=== PATIENT | female | born 1950 | race Caucasian/White ===

== ENCOUNTER 2019-07-27 19:36 | Emergency (ER) | payer OTHER ==
[2019-07-27 20:01] VITALS: TEMP 98.7; BMI 34.0
--- NOTE | 2019-07-27 21:32 | PDOC ---
History of Present Illness - General Chief Complaint: Chest Pain Stated Complaint: CHEST PAIN Time Seen by Provider: 07/27/19 21:32 History Source: Patient Exam Limitations: No Limitations - History of Present Illness Initial Comments: 69-year-old female with past medical history of hypertension, hyperlipidemia, diabetes, atrial fibrillation on Eliquis presented to the emergency department for chest pain for four days. Patient reported her pain is substernal, intermittent, aggravated by coughing or deep inspiration, no alleviating factors. She reported she has had a productive white cough for the last two months, has been seen by ENT and has had an EGD done, which was equivocal. They are still trying to figure out what the cause of the cough is. She reported that she also has intermittent right lateral back pain, her family member at bedside reported and they gave her a lidocaine patch the other day and that improved her symptoms. She reported that last night she took 200 mg of Advil, which did not improve her symptoms. She reported she will sometimes feel short of breath, more so when she lays down flat. She denies lower extremity swelling , fever, bodyaches, chills, headache, nausea, vomiting, diarrhea, abdominal pain. She denied history of recent travel, surgery in the last four weeks, hormone use, history of DVT or PE, hemoptysis, recent fall or fracture. She reported she has 0/10 chest pain now, but she is traveling [place] to [place], and this is why she felt she needs to be evaluated tonight. ROS General: denied fever, chills, generalized weakness. HEENT: denied sore throat, rhinorrhea, ear pain. Cardiovascular: admitted to chest pain. denied palpitations, syncope, diaphoresis. Respiratory: admitted to shortness of breath, cough, sputum production. denied hemoptysis. Gastrointestinal: denied abdominal pain, nausea, vomiting, diarrhea, constipation, blood in stool. Genitourinary: denied dysuria, increased urinary frequency, hematuria, urinary incontinence, flank pain. Back: admitted to back pain. Musculoskeletal: denied joint pain, muscle pain, joint swelling. Neurological: denied headache, dizziness, numbness, tingling, weakness. Integumentary: denied rash, laceration, abrasion. Hematologic/Lymphatic: denied bruising or bleeding. PE Constitutional: Well-nourished, Well-developed, appearing stated age. laughing with her family. HEENT: head is normocephalic, atraumatic. EOMI. PERRLA. Neck: supple. Full ROM. Cardiovascular: irregularly irregular heart rhythm. no murmurs. no pericardial friction rub. Respiratory: left base crackles. right lung clear to auscultation. no stridor. no labored breathing. speaking full sentences. Gastrointestinal: soft, nontender. normal bowel sounds. no rebound, guarding, masses. Extremities: peripheral pulses intact. no lower extremity pitting edema bilaterally. no calf tenderness bilaterally. Neurological: CN 2-12 grossly intact. moves all four extremities. Psych: awake, alert, oriented x3. follows commands. answers questions appropriately. Past History - Past Medical History Allergies/Adverse Reactions: Allergies Allergy/AdvReac Type Severity Reaction Status Date / Time iodine Allergy Severe Rash Verified 07/27/19 20:02 Home Medications: Ambulatory Orders Lidocaine 5% Patch [Lidoderm Patch -] 1 patch TP DAILY #7 patch 07/27/19 - Psycho Social/Smoking Cessation Hx Smoking History: Never smoked Have you smoked in the past 12 months: No Information on smoking cessation initiated: No Hx Alcohol Use: No Drug/Substance Use Hx: No *Physical Exam - Vital Signs Last Vital Signs Temp Pulse Resp BP Pulse Ox 98.7 F 80 18 157/91 97 07/27/19 19:57 07/27/19 19:57 07/27/19 19:57 07/27/19 19:57 07/27/19 19:57 ED Treatment Course - LABORATORY CBC & Chemistry Diagram: 07/27/19 20:15 07/27/19 20:15 Medical Decision Making - Medical Decision Making 69 year old female with above PMH presented to ED for chest pain x4 days associated with productive white cough x2 months. Initial Vital Signs Temp Pulse Resp BP Pulse Ox 98.7 F 80 18 157/91 97 07/27/19 19:57 07/27/19 19:57 07/27/19 19:57 07/27/19 19:57 07/27/19 19:57 Afebrile. No tachycardia. No tachypnea. Hypertensive. No hypoxia on room air. Labs ordered: CBC, CMP, BNP, Troponin Imaging ordered: CXR, right rib series Medications ordered: Tylenol 975 mg PO once EKG performed at 1950: rate 72, irregularly irregular rhythm, normal axis, QTc 409, no acute ST changes. CXR my and Dr. Hernandez's view: no infiltrate. sharp costophrenic angles. borderline cardiomegaly. -Pending official report Rib series my and Dr. Hernandez's view: no acute fracture/dislocation. -Pending official report Concern for ACS low, no current chest pain, history low suspicion, chronic cough may be giving pt her chest pain. No EKG changes, will get troponin. 07/27/19 23:50 Laboratory Last Values WBC 5.2 K/mm3 (4.0-10.0) 07/27/19 20:15 RBC 4.23 M/mm3 (3.60-5.2) 07/27/19 20:15 Hgb 12.6 GM/dL (10.7-15.3) 07/27/19 20:15 Hct 38.1 % (32.4-45.2) 07/27/19 20:15 MCV 90.2 fl (80-96) 07/27/19 20:15 MCH 29.9 pg (25.7-33.7) 07/27/19 20:15 MCHC 33.2 g/dl (32.0-36.0) 07/27/19 20:15 RDW 13.6 % (11.6-15.6) 07/27/19 20:15 Plt Count 285 K/MM3 (134-434) 07/27/19 20:15 MPV 8.4 fl (7.5-11.1) 07/27/19 20:15 Absolute Neuts (auto) 1.7 K/mm3 (1.5-8.0) 07/27/19 20:15 Neutrophils % 33.8 % (42.8-82.8) L 07/27/19 20:15 Lymphocytes % 56.7 % (8-40) H 07/27/19 20:15 Monocytes % 6.7 % (3.8-10.2) 07/27/19 20:15 Eosinophils % 2.0 % (0-4.5) 07/27/19 20:15 Basophils % 0.8 % (0-2.0) 07/27/19 20:15 Nucleated RBC % 0 % (0-0) 07/27/19 20:15 PT with INR 12.60 SEC (9.7-13.0) 07/27/19 20:15 INR 1.07 (0.83-1.09) 07/27/19 20:15 PTT (Actin FS) 35.2 SECONDS (25.2-36.5) 07/27/19 20:15 Sodium 140 mmol/L (136-145) 07/27/19 20:15 Potassium 4.1 mmol/L (3.5-5.1) 07/27/19 20:15 Chloride 106 mmol/L (98-107) 07/27/19 20:15 Carbon Dioxide 28 mmol/L (21-32) 07/27/19 20:15 Anion Gap 7 MMOL/L (8-16) L 07/27/19 20:15 BUN 16.2 mg/dL (7-18) 07/27/19 20:15 Creatinine 0.9 mg/dL (0.55-1.3) 07/27/19 20:15 Est GFR (CKD-EPI)AfAm 75.61 07/27/19 20:15 Est GFR (CKD-EPI)NonAf 65.24 07/27/19 20:15 Random Glucose 114 mg/dL (74-106) H 07/27/19 20:15 Calcium 9.8 mg/dL (8.5-10.1) 07/27/19 20:15 Total Bilirubin 0.6 mg/dL (0.2-1) 07/27/19 20:15 AST 18 U/L (15-37) 07/27/19 20:15 ALT 21 U/L (13-61) 07/27/19 20:15 Alkaline Phosphatase 83 U/L (45-117) 07/27/19 20:15 Troponin I < 0.02 ng/ml (0.00-0.05) 07/27/19 20:15 B-Natriuretic Peptide 749.3 pg/ml (5-125) H 07/27/19 20:15 Total Protein 7.9 g/dl (6.4-8.2) 07/27/19 20:15 Albumin 4.0 g/dl (3.4-5.0) 07/27/19 20:15 BNP elevation. -No pulmonary vascular congestion on CXR, no lower extremity pitting edema Medications ordered: Lasix 20 mg IV once Will observe and repeat vitals. 07/28/19 00:11 Pt informed of results. Advised to F/U with PCP and have BNP repeated. Pt expressed understanding and agreed with plan for care. Pt discharged. 07/31/19 09:06 Follow up: Official Rib series XR report: Name: [facility] Phys : AleydaCaprice RESIDENT : 1950 Age: 69 Sex: F [facility] Acct: [id number] Loc: [address] Exam Date: 07/27/19 Status: [place] [address] Unit Number: [id number] ACCESSION # : [id number] EXAM#: TYPE/EXAM: RESULT: [id number] RAD/RIBS RIGHT SIDE Right RIBS: Posterior pain. A marker has not been placed with their is specific pain. 2 views of the right ribs reveal no sign of a gross fracture. Blastic or lytic changes are not seen. There are right upper quadrant clips. The right lung is clear. Impression : No acute right rib pathology. Reported By: Wayne Santos MD 07/28/19 0846 Official CXR report: Name: [facility] Phys: Caprice Maynard RESIDENT : 1950 Age: 69 Sex: F [facility] Acct: [id number] Loc: [address] Exam Date: 07/27/19 Status: [place] [address] Unit Number: [id number] EXAM#: TYPE/EXAM: RESULT: [id number] RAD/CHEST PA LAT Chest: Substernal chest pain. Cough. There are no prior studies for comparison. 2 views of the chest reveal clear lungs, large heart, normal aorta and normal harpreet. Angles are sharp. The soft tissues are intact. Significant arthritic changes are not seen. If symptoms persist , further imaging may be of help. Impression: No acute chest pathology. Reported By: Wayne Santos MD 07/28/19 0658 Discharge - Discharge Information Problems reviewed: Yes Clinical Impression/Diagnosis: Chest pain, Back pain, Elevated brain natriuretic peptide (BNP) level Condition: Stable Disposition: HOME - Admission No - Additional Discharge Information Prescriptions: Lidocaine 5% Patch [Lidoderm Patch -] 1 patch TP DAILY #7 patch - Follow up/Referral - Patient Discharge Instructions Additional Instructions: Follow up with your primary care doctor within 3 days regarding your Emergency Room visit. Your care is not complete until you follow up. Your BNP level was elevated today - this is a marker of fluid overload. Please discuss this with your primary care doctor and have this lab test repeated within 7 days. Your care is not complete until you do this. Take Tylenol 650 mg every 6 hours as needed for pain. Take over the counter. In the elderly Ibuprofen, Aleve, Naproxen, Advil, Motrin can cause kidney damage , and should be avoided if possible. I have sent a prescription to your pharmacy for Lidoderm patches, use as advised on label. -Sometimes insurance does not cover the patches, but they are available over the counter with only 1% difference in medication. If your insurance will not cover the patches please buy them over the counter. Return to the Emergency Department for increasing pain, chest pain, shortness of breath, vomiting, fever, leg swelling, lightheadedness, passing out or any other new, worsening or concerning symptoms. [employer] TRANSLATION Najma un seguimiento con nolasco mdico de atencin primaria dentro de los 3 ahmadi con respecto a nolasco visita a la keysha de emergencias. Nolasco atencin no estar completa hasta que realice el seguimiento. Nolasco nivel de BNP se elev hoy: mitesh es un marcador de sobrecarga de lquidos. Discuta esto con nolasco mdico de atencin primaria y repita esta prueba de laboratorio dentro de los 7 ahmadi. Nolasco atencin no estar completa hasta que najma esto. Boykins Tylenol 650 mg cada 6 horas segn sea necesario para el dolor. Susan el mostrador. En los ancianos, el ibuprofeno, Aleve, Naproxeno, Advil, Motrin pueden causar vlad renal y deben evitarse si es posible. He enviado shayy receta a nolasco farmacia para parches de Lidoderm, use valerie se indica en la etiqueta. -A veces el seguro no cubre los parches, jayden estn disponibles sin receta con solo un 1% de diferencia en la medicacin. Si nolasco seguro no cubre los parches, cmprelos en el mostrador. Regrese al departamento de emergencias para aumentar el dolor, dolor en el pecho , falta de aliento, vmitos, fiebre, hinchazn de las piernas, aturdimiento, desmayo o cualquier otro sntoma nuevo, que empeora o preocupa. - Post Discharge Activity
[2019-07-27] MEDS ORDERED: ACETAMINOPHEN 325 MG TABLET (FP) PO ONE (21:58)
[2019-07-27] MEDS ORDERED: LIDOCAINE 5% TOPICAL PATCH TP ONE (21:58)
[2019-07-27] MEDS ORDERED: LIDOCAINE PATCH REMOVAL MC SCH (22:00)
--- NOTE | 2019-07-27 22:07 | PDOC ---
Attending Attestation - Resident Resident Name: Caprice Maynard - ED Attending Attestation I have performed the following: I have examined & evaluated the patient, The case was reviewed & discussed with the resident, I agree w/resident's findings & plan - HPI HPI: 07/27/19 22:06 Pt comes with MSCP and back pain. She has a hx of afib. DM and HTN and high cholesterol. She has no fevers and no chills and no cough Patient appears well. She is on eliquis among other meds and she is compliant with it all. - Physicial Exam PE: 07/27/19 22:13 Pt is obese. Afebrile Rosacea on face no other rash HEENT normal Abd soft NT ND Heart irreg irreg rhythm No flank pain lungs clear. Neuro: no gross focal deficits. - Medical Decision Making 07/27/19 22:38 CBC and INR normal 07/28/19 04:04 CXR normal; slight cardiomegaly; chem normal Pt has elevated BNP; she will be given a dose of lasix. Stable for discharge home
[2019-07-27 22:22] LABS: BASO % 0.8 % (0-2.0); HEMATOCRIT 38.1 % (32.4-45.2); HEMOGLOBIN 12.6 GM/dL (10.7-15.3); LYMPH % 56.7 % (8-40); MCH 29.9 pg (25.7-33.7); MCHC 33.2 g/dl (32.0-36.0); MEAN CELL VOLUME 90.2 fl (80-96); MEAN PLT VOLUME 8.4 fl (7.5-11.1); MONO % 6.7 % (3.8-10.2); NEUT % 33.8 % (42.8-82.8); PLATELET COUNT 285 K/MM3 (134-434); RBC 4.23 M/mm3 (3.60-5.2); RDW 13.6 % (11.6-15.6); WHITE BLOOD COUNT 5.2 K/mm3 (4.0-10.0)
[2019-07-27] MEDS ORDERED: ACETAMINOPHEN 325 MG TABLET (FP) ONE (22:22)
[2019-07-27] MEDS ORDERED: LIDOCAINE 5% TOPICAL PATCH ONE (22:23)
[2019-07-27 22:31] LABS: INR 1.07 (0.83-1.09); PROTHROMBIN TIME (PATIENT) 12.6 SEC (9.7-13.0)
[2019-07-27 22:34] LABS: ACTIVATED PTT 35.2 SECONDS (25.2-36.5)
[2019-07-27 22:56] LABS: N-TERMINAL BNP 749.3 pg/ml (5-125)
[2019-07-27 22:57] LABS: BILIRUBIN,TOTAL 0.6 mg/dL (0.2-1); BLOOD UREA NITROGEN 16.2 mg/dL (7-18); CALCIUM 9.8 mg/dL (8.5-10.1); CREATININE 0.9 mg/dL (0.55-1.3); POTASSIUM 4.1 mmol/L (3.5-5.1); TOT PROT 7.9 g/dl (6.4-8.2)
[2019-07-27] MEDS ORDERED: FUROSEMIDE 40 MG/4 ML INJECTABLE VIAL IVPUSH ONE (23:03)
[2019-07-27] MEDS ORDERED: FUROSEMIDE 40 MG/4 ML INJECTABLE VIAL ONE (23:16)
[2019-07-28 00:36] VITALS: BP 141/85; PULSE 84
--- NOTE | 2019-07-29 12:08 | EKG ---
Test Reason : Blood Pressure : / mmHG Vent. Rate : 072 BPM Atrial Rate : 081 BPM P-R Int : 000 ms QRS Dur : 086 ms QT Int : 374 ms P-R-T Axes : 000 051 037 degrees QTc Int : 409 ms ATRIAL FIBRILLATION CANNOT RULE OUT ANTERIOR INFARCT , AGE UNDETERMINED ABNORMAL ECG NO PREVIOUS ECGS AVAILABLE Confirmed by MD Lam, Hector ([id number]) on 07/29/2019 12:07:58 PM Referred By: Confirmed By:Hector Fritz MD
== END 2019-07-28 00:25 | disposition home or self-care (01) ==
LOC: JER 19:36
PROC: 3E033GC Introduction of Other Therapeutic Substance into Peripheral Vein, Percutaneous Approach (ICD-10-PCS; principal; 2019-07-27)
DX: R07.9 Chest pain, unspecified (principal); R79.89 Other specified abnormal findings of blood chemistry; M54.89 Other dorsalgia; L71.9 Rosacea, unspecified; I10 Essential (primary) hypertension; E11.9 Type 2 diabetes mellitus without complications; E78.5 Hyperlipidemia, unspecified; I48.91 Unspecified atrial fibrillation; Z79.01 Long term (current) use of anticoagulants; Z88.8 Allergy status to other drugs, medicaments and biological substances
CPT/HCPCS: 36415; 71046-TC-FY; 71101-TC-RT-FY; 80053; 83880; 84484; 85025; 85610; 85730; 93005; 93010; 99283-25